=== PATIENT | female | born 1950 | race Caucasian/White ===

== ENCOUNTER 2024-11-13 12:31 | Emergency (ER) | payer MEDICARE, OTHER ==
[~2024-11-13] VITALS: Ht 167.6 cm; Wt 75.3 kg
[2024-11-13 12:44] VITALS: TEMP 97.9
[2024-11-13 14:46] LABS: BASOPHILS % (AUTO) 0.6 % (0.0-2.0); EOSINOPHILS # (AUTO) 0.1 K/uL (0.0-0.7); EOSINOPHILS % (AUTO) 1.2 % (0.0-6.0); HEMATOCRIT 36 % (33-45); LYMPHOCYTES # (AUTO) 0.8 K/uL (0.8-4.8); LYMPHOCYTES % (AUTO) 17.2 % (20.0-44.0); MEAN CORPUSCULAR HEMOGLOBIN 26 PG (26.0-33.0); MEAN CORPUSCULAR HGB CONC 33 g/dl (31.0-36.0); MEAN CORPUSCULAR VOLUME 78 fL (82-100); MONOCYTES # (AUTO) 0.5 K/uL (0.1-1.30); MONOCYTES % (AUTO) 10.6 % (2.0-12.0); NEUTROPHILS # (AUTO) 3.4 K/uL (1.8-8.9); NEUTROPHILS % (AUTO) 70.4 % (43.0-81.0); PLATELET COUNT (AUTO) 224 K/uL (150-450); RED BLOOD CELL COUNT(AUTO) 4.65 MIL/uL (4.0-5.2); RED CELL DISTRIBUTION WIDTH 15.2 % (11.5-15.0); WHITE BLOOD COUNT (AUTO) 4.8 K/uL (4.3-11.0)
[2024-11-13 15:05] LABS: CALCIUM, SERUM 8.3 mg/dL (8.5-10.1); CARBON DIOXIDE 25 mmol/L (21-32); CHLORIDE 110 mmol/L (98-107); CREATININE 0.8 mg/dL (0.6-1.3); GLUCOSE 139 mg/dL (74-106); POTASSIUM 3.8 mmol/L (3.5-5.1); SODIUM SERUM 141 mmol/L (136-145); UREA NITROGEN, BLOOD 17 mg/dL (7-18)
[2024-11-13] MEDS ORDERED: ASPIRIN 81 MG TAB.CHEW ONE (15:23)
[2024-11-13] MEDS: ASPIRIN 81 MG TAB.CHEW PO ONE (15:49)
[2024-11-13] MEDS: IV NS 0.9% 1,000 ML BAG IV ONE (15:52)
[2024-11-13 20:02] VITALS: BP 110/67; O2SAT 99
== END 2024-11-13 17:30 | disposition home or self-care (01) ==
LOC: ER 12:49
DX: I48.91 Unspecified atrial fibrillation (principal); R00.2 Palpitations; R07.9 Chest pain, unspecified; I10 Essential (primary) hypertension; Z88.0 Allergy status to penicillin; Z90.49 Acquired absence of other specified parts of digestive tract
CPT/HCPCS: 99285; 96360; 71045; 93005 ×2; 85025; 80048; 36415; 84484 ×2; J7030 ×2

== ENCOUNTER 2025-11-24 20:57 | Emergency (ER) | payer MEDICARE, OTHER ==
[~2025-11-24] VITALS: Ht 167.6 cm; Wt 77.6 kg
[2025-11-24] MEDS ORDERED: oxyCODONE/APAP (5/325 MG) 1 UDTAB TABLET ONE (23:04)
[2025-11-24] MEDS: oxyCODONE/APAP (5/325 MG) 1 UDTAB TABLET PO ONE (23:06)
[2025-11-24] MEDS ORDERED: ACETAMINOPHEN 325 MG TABLET ONE (23:44)
[2025-11-24] MEDS: ACETAMINOPHEN 325 MG TABLET PO ONE (23:51)
[2025-11-24] MEDS ORDERED: OXYC-128 PO (23:54)
[2025-11-24] MEDS ORDERED: ONDA4TAB11 PO (23:54)
[2025-11-25 00:20] VITALS: BP 147/76; TEMP 98; O2SAT 97
== END 2025-11-25 00:20 | disposition home or self-care (01) ==
LOC: ER 21:01
DX: S52.502A Unspecified fracture of the lower end of left radius, initial encounter for closed fracture (principal); I11.9 Hypertensive heart disease without heart failure; I48.91 Unspecified atrial fibrillation; Z88.8 Allergy status to other drugs, medicaments and biological substances; Z88.0 Allergy status to penicillin; W01.198A Fall on same level from slipping, tripping and stumbling with subsequent striking against other object, initial encounter; Y93.89 Activity, other specified; Y92.89 Other specified places as the place of occurrence of the external cause; Y99.8 Other external cause status
CPT/HCPCS: 73110